=== PATIENT | male | born 1950 | race Two or more races ===

== ENCOUNTER → 2020-02-06 | Emergency (ER) | payer OTHER ==
[~2020-02-06] VITALS: Ht 177.8 cm; Wt 91.2 kg
[~2020-02-06] MED LIST: NAPROSYN125 MG/5 M PO; XARELTO10 MG PO
== END | disposition home or self-care (01) ==
LOC: ER 01:26 → CPU-OBS 01:31
DX: R07.89 Other chest pain (principal); R00.1 Bradycardia, unspecified